=== PATIENT | female | born 1935 | race Caucasian/White ===

== ENCOUNTER 2023-07-27 23:10 | Inpatient (IN) | payer MEDICARE, BC ==
[2023-07-27 23:48] LABS: #Basophils 0.1 thou/uL (0.0-0.2); #Monocytes 0.6 thou/uL (0.11-0.59); #Neutrophils 5.4 thou/uL (1.40-6.50); %Basophils 0.8 % (0.0-1.0); %Eosinophils 0.2 % (0.0-10.0); %Lymphocytes 6.8 % (21.0-51.0); %Monocytes 8.6 % (0.0-10.0); %Neutrophils 83.1 % (42.0-75.0); Hematocrit 42.2 % (36.0-47.0); Hemoglobin 13.7 g/dL (12.0-16.0); Mean Corpuscular HGB CONC 32.5 g/dL (32.0-36.0); Mean Corpuscular Hemoglobin 30.2 pg (27.0-31.0); Mean Platelet Volume 9.4 fL (7.4-10.4); Platelet Count 246 10x3/uL (130-400); RBC Distribution Width 13.2 % (11.5-14.5); Red Blood Cell (RBC) Count 4.54 mill/uL (4.20-5.40); White Blood Cell (WBC) Count 6.5 10x3/uL (4.8-10.8)
[2023-07-28 00:10] LABS: ALT (SGPT) 11 U/L (8-55); AST (SGOT) 23 U/L (5-34); Albumin 3.6 g/dL (3.4-4.8); Alkaline Phosphatase 69 U/L (40-110); Anion Gap 12 mmol/L (10-20); BUN (Urea Nitrogen) 10 mg/dL (9.8-20.1); Bilirubin, Total 1.2 mg/dL (0.2-1.2); Calc. Creatinine Clearance 0 mL/min (70-130); Calcium 8.6 mg/dL (7.8-10.44); Carbon Dioxide 25 mmol/L (23-31); Chloride 98 mmol/L (98-107); Estimated GFR 48; Globulin 2.9 g/dL (2.4-3.5); Glucose 109 mg/dL (83-110); Magnesium 1.8 mg/dL (1.6-2.6); Potassium 3.3 mmol/L (3.5-5.1); Protein, Total 6.5 g/dL (5.8-8.1); Sodium 132 mmol/L (136-145)
[2023-07-28 00:16] LABS: Troponin I 0.037 ng/mL (< 0.028)
[2023-07-28 00:26] LABS: Actual Bicarbonate (HCO3v) 26.1 mEq/L (22-28); Analyzer IN Cardio ER; Calcium, Ionized (venous) 1.03 mmol/L (1.16-1.32); Chloride (VBG) 97 mmol/L (98-106); Hematocrit-VBG 42 % (36.0-47.0); Hemoglobin (Hb) 14.3 g/dL (11.7-16.1); Potassium (VBG) 3.19 mmol/L (3.70-5.30); Sodium 133 mmol/L (133-146); pH (venous) 7.399 (7.32-7.43)
[2023-07-28] MEDS ORDERED: Potassium Bicarbonate/Cit Ac 20 MEQ TAB ONE ×2 (00:51→09:44)
[2023-07-28] MEDS ORDERED: Magnesium 2 GM/50 ML BAG (IN WATER) ONE (00:54)
[2023-07-28] MEDS ORDERED: Ondansetron PF 4 MG/2 ML Vial IVP PRN (01:45)
[2023-07-28] MEDS ORDERED: Ondansetron ODT 4 MG TAB SL PRN (01:45)
[2023-07-28] MEDS ORDERED: Acetaminophen 325 MG TAB PO PRN (01:45)
[2023-07-28 03:41] LABS: #Monocytes 0.6 thou/uL (0.11-0.59); #Neutrophils 5.4 thou/uL (1.40-6.50); %Basophils 0.6 % (0.0-1.0); %Lymphocytes 7.9 % (21.0-51.0); %Monocytes 9.4 % (0.0-10.0); %Neutrophils 81.8 % (42.0-75.0); Hematocrit 39.8 % (36.0-47.0); Hemoglobin 13.4 g/dL (12.0-16.0); Mean Corpuscular HGB CONC 33.7 g/dL (32.0-36.0); Mean Corpuscular Hemoglobin 30.8 pg (27.0-31.0); Mean Corpuscular Volume 91.5 fl (78.0-98.0); Mean Platelet Volume 9.6 fL (7.4-10.4); Platelet Count 225 10x3/uL (130-400); RBC Distribution Width 13.1 % (11.5-14.5); Red Blood Cell (RBC) Count 4.35 mill/uL (4.20-5.40); White Blood Cell (WBC) Count 6.6 10x3/uL (4.8-10.8)
[2023-07-28 04:01] LABS: Anion Gap 15 mmol/L (10-20); BUN (Urea Nitrogen) 11 mg/dL (9.8-20.1); Calc. Creatinine Clearance 0 mL/min (70-130); Calcium 8.6 mg/dL (7.8-10.44); Carbon Dioxide 22 mmol/L (23-31); Chloride 98 mmol/L (98-107); Estimated GFR 60; Glucose 95 mg/dL (83-110); Potassium 3.3 mmol/L (3.5-5.1); Sodium 132 mmol/L (136-145)
[2023-07-28 04:07] LABS: Troponin I 0.046 ng/mL (< 0.028)
[2023-07-28 06:28] LABS: Troponin I 0.039 ng/mL (< 0.028)
[2023-07-28] MEDS ORDERED: Potassium Bicarbonate/Cit Ac 20 MEQ TAB PO SCH (08:45)
[2023-07-28] MEDS ORDERED: Enoxaparin 40 MG (0.4 mL) SYRINGE SC SCH (09:00)
[2023-07-28] MEDS ORDERED: Metoprolol Tartrate 25 MG TAB ONE (09:43)
[2023-07-28] MEDS ORDERED: Apixaban 5 MG TAB ONE (09:44)
[2023-07-28] MEDS: Apixaban 5 MG TAB PO SCH ×2 (09:49→20:14)
[2023-07-28] MEDS: Metoprolol Tartrate 25 MG TAB PO SCH ×2 (09:49→20:14)
[2023-07-28] MEDS ORDERED: Amlodipine 10 MG TAB PO SCH (11:15)
[2023-07-28] MEDS ORDERED: Amlodipine 5 MG TAB ONE (11:22)
[2023-07-28 15:42] VITALS: BMI 23.6
[2023-07-29 07:22] LABS: #Monocytes 0.4 thou/uL (0.11-0.59); #Neutrophils 5.4 thou/uL (1.40-6.50); %Basophils 0.6 % (0.0-1.0); %Eosinophils 0.2 % (0.0-10.0); %Lymphocytes 9.9 % (21.0-51.0); %Monocytes 6.1 % (0.0-10.0); %Neutrophils 82.9 % (42.0-75.0); Hematocrit 41.5 % (36.0-47.0); Hemoglobin 13.8 g/dL (12.0-16.0); Mean Corpuscular HGB CONC 33.3 g/dL (32.0-36.0); Mean Corpuscular Hemoglobin 30.5 pg (27.0-31.0); Mean Corpuscular Volume 91.8 fl (78.0-98.0); Mean Platelet Volume 9.5 fL (7.4-10.4); Platelet Count 239 10x3/uL (130-400); RBC Distribution Width 13.2 % (11.5-14.5); Red Blood Cell (RBC) Count 4.52 mill/uL (4.20-5.40); White Blood Cell (WBC) Count 6.6 10x3/uL (4.8-10.8)
[2023-07-29 07:43] LABS: Anion Gap 14 mmol/L (10-20); BUN (Urea Nitrogen) 14 mg/dL (9.8-20.1); Calc. Creatinine Clearance 51 mL/min (70-130); Calcium 8.6 mg/dL (7.8-10.44); Carbon Dioxide 27 mmol/L (23-31); Chloride 99 mmol/L (98-107); Estimated GFR 66; Glucose 75 mg/dL (83-110); Potassium 3.7 mmol/L (3.5-5.1); Sodium 136 mmol/L (136-145)
[2023-07-29] MEDS ORDERED: Ipratropium/Albuterol 3 ML NEB NEB PRN (08:48)
[2023-07-29] MEDS ORDERED: Potassium Bicarbonate/Cit Ac 20 MEQ TAB PO SCH (09:00)
[2023-07-29] MEDS ORDERED: Furosemide 40 MG (4 mL) VIAL SLOW IVP SCH (09:00)
[2023-07-29] MEDS: Amlodipine 10 MG TAB PO SCH (09:37)
[2023-07-29] MEDS: cefTRIAXone\\ROCEPHIN 1 GM in Sodium Chloride 0.9% 100 ML IVPB SCH (09:37)
[2023-07-29] MEDS: Apixaban 5 MG TAB PO SCH ×2 (09:37→21:04)
[2023-07-29] MEDS: Metoprolol Tartrate 25 MG TAB PO SCH ×2 (09:38→21:04)
[2023-07-29] MEDS: methylPREDNISolone Sod Succ 40 MG VIAL IVP SCH (09:38)
[2023-07-29] MEDS: Ipratropium/Albuterol 3 ML NEB NEB SCH ×3 (14:12→18:58)
[2023-07-30] MEDS: Ipratropium/Albuterol 3 ML NEB NEB SCH ×3 (00:07→12:26)
[2023-07-30 06:16] LABS: #Monocytes 0.5 thou/uL (0.11-0.59); #Neutrophils 6.7 thou/uL (1.40-6.50); %Basophils 0.3 % (0.0-1.0); %Lymphocytes 8.2 % (21.0-51.0); %Neutrophils 85.4 % (42.0-75.0); Hematocrit 43.7 % (36.0-47.0); Hemoglobin 14.4 g/dL (12.0-16.0); Mean Corpuscular Hemoglobin 29.9 pg (27.0-31.0); Mean Corpuscular Volume 90.9 fl (78.0-98.0); Mean Platelet Volume 9.8 fL (7.4-10.4); Platelet Count 257 10x3/uL (130-400); RBC Distribution Width 13.2 % (11.5-14.5); Red Blood Cell (RBC) Count 4.81 mill/uL (4.20-5.40); White Blood Cell (WBC) Count 7.8 10x3/uL (4.8-10.8)
[2023-07-30 06:46] LABS: Anion Gap 14 mmol/L (10-20); BUN (Urea Nitrogen) 37 mg/dL (9.8-20.1); Calc. Creatinine Clearance 32 mL/min (70-130); Calcium 8.9 mg/dL (7.8-10.44); Carbon Dioxide 28 mmol/L (23-31); Chloride 97 mmol/L (98-107); Estimated GFR 38; Glucose 120 mg/dL (83-110); Potassium 4.1 mmol/L (3.5-5.1); Sodium 135 mmol/L (136-145)
[2023-07-30] MEDS: cefTRIAXone\\ROCEPHIN 1 GM in Sodium Chloride 0.9% 100 ML IVPB SCH (08:58)
[2023-07-30] MEDS: Metoprolol Tartrate 25 MG TAB PO SCH (08:58)
[2023-07-30] MEDS: Amlodipine 10 MG TAB PO SCH (08:58)
[2023-07-30] MEDS: Apixaban 5 MG TAB PO SCH (08:58)
[2023-07-30] MEDS: methylPREDNISolone Sod Succ 40 MG VIAL IVP SCH (08:59)
[2023-07-30 15:43] VITALS: BP 114/60; TEMP 97.8
[2023-07-31] MEDS ORDERED: FLU VACC QS2023(65UP)/MF59C/PF 60 MCG/0.5 ML SYRINGE IM ONE (16:15)
== END 2023-07-30 17:35 | disposition home or self-care (01) | DRG 189 ==
LOC: ERS 23:10 → 2SW 07-28 01:25 → ERHOLD 07-28 01:30 → 2SW 07-28 13:13 → OBSVTOIN 07-29 08:50
PROVIDERS: ADMIT Family Medicine; ATTEND Internal Medicine
DX: J96.01 Acute respiratory failure with hypoxia (principal); E87.1 Hypo-osmolality and hyponatremia; I50.30 Unspecified diastolic (congestive) heart failure; I11.0 Hypertensive heart disease with heart failure; J20.9 Acute bronchitis, unspecified; R55 Syncope and collapse; I48.91 Unspecified atrial fibrillation; F03.90 Unspecified dementia, unspecified severity, without behavioral disturbance, psychotic disturbance, mood disturbance, and anxiety; Z79.01 Long term (current) use of anticoagulants; Z79.899 Other long term (current) drug therapy; Z87.891 Personal history of nicotine dependence
CPT/HCPCS: 36415; 70450; 70551; 71045; 80048; 80053; 82805; 83036; 83735; 83880; 84443; 84484; 85025; 93005; 93306; 93880; 96374; G0378; J0696; J1940; J2920; J3475; J3490; J7620